=== PATIENT | male | born 1970 | race Two or more races ===

== ENCOUNTER 2024-10-22 03:24 | Inpatient (IN) | payer MEDICAID, OTHER ==
[2024-10-22] VITALS (7 sets, daily range): BP systolic 113–122; BP diastolic 71–84; PULSE 65–76; RESP 16–18; TEMP 97.6–99; O2SAT 95–96
[~2024-10-22] VITALS: Ht 182.9 cm; Wt 86.2 kg
[2024-10-22] MEDS: MORPHINE SULFATE 4 MG/ML SYR/VIAL IV ONE (03:45)
[2024-10-22] MEDS: ONDANSETRON HCL 4 MG/2 ML VIAL IV ONE (03:45)
[2024-10-22 03:52] LABS: Urine Bacteria None Seen /hpf (None Seen)
--- NOTE | 2024-10-22 03:55 | ED.PDOC ---
History of Present Illness HPI Comments 54 y/o M presents with c/o right testicular pain and swelling. Patient endorses on sudden and unprovoked onset of symptoms, that began 8 hours prior to arrival. He refutes any known recent injuries, sexual activities, or previous incidences of similar symptoms in the past. He denies having any urinary symptoms, fever, chills, or other associated symptoms. Chief Complaint: Testicle Pain Time Seen by MD: 03:40 Reviewed Notes: Nurses Notes, Medications, Allergies Allergies: Coded Allergies: NO KNOWN ALLERGIES (Unverified , 10/22/24) Information Source: Patient Mode of Arrival: Ambulatory Severity: Moderate Timing: Hours Duration: Since onset Prehospital treatment: None Past Medical History PAST MEDICAL HISTORY: Denies Surgical History: Denies all surgeries Social History Smoker: Non-Smoker Alcohol: Denies ETOH Use Drugs: Denies Drug Use Lives In: Home All Other Systems: Reviewed and Negative (Comprehensive systems review obtained and negative except for what is stated in the HPI.) Physical Exam General Appearance: Moderate Distress HEENT: Pharynx Normal Neck: Normal Inspection Respiratory: No Respiratory Distress Cardiovascular: No Edema Breast Exam: Deferred Gastrointestinal: Non Tender Genitalia: Testicle (Right and left testicles are swollen and tender) Pelvic: Deferred Rectal: Deferred Extremities: No pedal edema Neurologic: No Motor Deficits Cerebellar Function: NOT DONE Reflexes: NOT DONE Skin: Normal Color Lymphatic: NOT DONE Was a procedure done? Was a procedure done?: No Differential Dx Considerations may include: testicular torsion, epididymitis, torsion of testicular appendix, HSP, inguinal hernia, among others X-Ray, Labs, Meds, VS Vital Signs Date Time Temp Pulse Resp B/P (MAP) Pulse Ox O2 Delivery O2 Flow Rate FiO2 10/22/24 03:30 98.9 92 16 174/115 (134) 98 98.9 Lab Test 10/22/24 03:45 10/22/24 03:40 Range/Units Urine Color Light-yellow Yellow Urine Clarity Clear Clear Urine pH 6.5 5.0-9.0 Urine Specific [place] 1.025 1.001-1.035 Urine Protein Negative Negative Urine Ketones Negative Negative Urine Blood 1+ H Negative /uL Urine Nitrite Negative Negative Urine Bilirubin Negative Negative Urine Urobilinogen 2 H Negative mg/dL Urine Leukocyte Esterase 3+ Negative /uL Urine RBC 28 0 - 3 /hpf Urine Microscopic WBC 116 H 0-3 /HPF Urine Squamous Epithelial Cells Few <5 /hpf Urine Bacteria None seen None Seen /hpf Urine Yeast (Budding) Occasional None Seen /hpf Urine Glucose Normal Normal mg/dL White Blood Count 15.4 H 4.4-10.8 10^3/uL Red Blood Count 4.63 4.5-5.90 10^6/uL Hemoglobin 14.5 13.5-17.5 g/dL Hematocrit 42.6 41.0-53.0 % Mean Corpuscular Volume 91.8 80.0-100.0 fL Mean Corpuscular Hemoglobin 31.4 28.0-32.0 pg Mean Corpuscular Hemoglobin Concent 34.2 32.0-36.0 g/dL Red Cell Distribution Width 13.1 11.8-14.3 % Platelet Count 299 140-450 10^3/uL Mean Platelet Volume 7.7 6.9-10.8 fL Neutrophils (%) (Auto) 76.2 37.0-80.0 % Lymphocytes (%) (Auto) 15.3 10.0-50.0 % Monocytes (%) (Auto) 6.8 0.0-12.0 % Eosinophils (%) (Auto) 0.6 0.0-7.0 % Basophils (%) (Auto) 1.1 0.0-2.0 % Neutrophils # (Auto) 11.7 H 1.6-8.6 10 ^3/uL Lymphocytes # (Auto) 2.4 0.4-5.4 10 ^3/uL Monocytes # (Auto) 1.0 0-1.3 10 ^3/uL Eosinophils # (Auto) 0.1 0-0.8 10 ^3/uL Basophils # (Auto) 0.2 0-0.2 10 ^3/uL Nucleated Red Blood Cells 0.0 % Sodium Level 139 136-145 mmol/L Potassium Level 4.1 3.5-5.1 mmol/L Chloride Level 105 98-107 mmol/L Carbon Dioxide Level 27 20-31 mmol/L Anion Gap 7 5-15 Blood Urea Nitrogen 14 9-23 mg/dL Creatinine 0.95 0.700-1.30 mg/dL Glomerular Filtration Rate Calc 96 >90 mL/min BUN/Creatinine Ratio 14.7 10.0-20.0 Serum Glucose 108 H 74-106 mg/dL Calcium Level 9.9 8.7-10.4 mg/dL Time of 1ST Reevaluation: 04:10 Reevaluation 1ST: Unchanged Patient Education/Counseling: Diagnosis, Treatment Family Education/Counseling: No Family Present Departure 1 Departure Time of Disposition: 05:21 (Patient presented with abdominal pain that was concerning for possible appendicits, gastritis, cholecystitis, colitis, ga stroenteritis, sbo, or orther possible surgical emergency. Data: 1. I ordered and reviewed the result of at least 3 labs including a CBC, BMP, and Urinalysis. 2. I independently interpreted the following tests: Ultrasound is concerning for epididymitis and an abnormal appearance to the left testicle..Risk:This patient has a high risk of morbidity due to further diagnostic testing or treatment and may suffer from an acute abdominal process disorder. Workup reveals epididymitis but an adenoma left testicle appearance on ultrasound. Given patient's intractable pain we will empirically cover patient with antibiotics and admit patient for expert consultation .) Impression: Primary Impression: Epididymitis, right Additional Impression: Abnormal finding on diagnostic imaging of left testicle Disposition: ADMITTED INPATIENT Admit to: Med Surg Condition: Serious Critical Care Note Critical Care Time?: Yes Critical care comment: Intractable abdominal pain Authorized and Performed by: Jayce Enciso MD Total critical care time: Approximately 35 minutes Due to a high probability of clinically significant, life threatening deterioration, the patient required my highest level of preparedness to intervene emergently and I personally spent this critical care time directly and personally managing the patient. This critical care time included obtaining a history; examining the patient; pulse oximetry; ordering and review of studies; arranging urgent treatment with development of a management plan; evaluation of patient's response to treatment; frequent reassessment; and, discussions with other providers. This critical care time was performed to assess and manage the high probability of imminent, life-threatening deterioration that could result in multi-organ failure. It was exclusive of separately billable procedures and treating other patients and teaching time. Please see my other sections and the rest of the note for further information on patient assessment and treatment. Stability Stability form required: No Heart Score Heart Score: Heart Score Response (Comments) Value History N/A 0 EKG N/A 0 Age N/A 0 Risk Factors N/A 0 Troponin N/A 0 Total 0 I personally scribed for JAYCE ENCISO MD ([email or web address]) on 10/22/24 at 03:55. Electronically submitted by Bry Jimenez ([email or web address]). JAYCE ENCISO MD October 22, 2024 03:55
[2024-10-22 04:15] LABS: Urine Blood 1+ /uL (Negative); Urine Budding Yeast OCCASIONAL /hpf (None Seen); Urine Clarity Clear (Clear); Urine Color Light-Yellow (Yellow); Urine Protein, UAD Negative (Negative); Urine Specific Gravity 1.025 (1.001-1.035); Urine Squamous Epithelial Cell FEW /hpf (<5); Urine Urobilinogen 2 mg/dL (Negative); Urine WBC 116 /HPF (0-3); Urine pH 6.5 (5.0-9.0)
[2024-10-22 04:21] LABS: Basophils # (auto) 0.2 10 ^3/uL (0-0.2); Basophils % (auto) 1.1 % (0.0-2.0); Eosinophils # (auto) 0.1 10 ^3/uL (0-0.8); Eosinophils % (auto) 0.6 % (0.0-7.0); Hematocrit 42.6 % (41.0-53.0); Hemoglobin 14.5 g/dL (13.5-17.5); Lymphocytes # (auto) 2.4 10 ^3/uL (0.4-5.4); Lymphocytes % (auto) 15.3 % (10.0-50.0); Mean Corpuscular Hemoglobin 31.4 pg (28.0-32.0); Mean Corpuscular Hgb Conc. 34.2 g/dL (32.0-36.0); Mean Corpuscular Volume 91.8 fL (80.0-100.0); Monocytes % (auto) 6.8 % (0.0-12.0); Neutrophils # (auto) 11.7 10 ^3/uL (1.6-8.6); Neutrophils % (auto) 76.2 % (37.0-80.0); Platelet Count (auto) 299 10^3/uL (140-450); Red Blood Cells 4.63 10^6/uL (4.5-5.90); Red Cell Distribution Width 13.1 % (11.8-14.3); White Blood Cell 15.4 10^3/uL (4.4-10.8)
[2024-10-22 04:27] LABS: Chloride 105 mmol/L (98-107); Potassium 4.1 mmol/L (3.5-5.1); Sodium 139 mmol/L (136-145)
[2024-10-22 04:28] LABS: Anion Gap 7 (5-15); Calcium 9.9 mg/dL (8.7-10.4); Carbon Dioxide 27 mmol/L (20-31)
[2024-10-22 04:33] LABS: BUN/Creatinine Ratio 14.7 (10.0-20.0); Blood Urea Nitrogen 14 mg/dL (9-23)
[2024-10-22 04:39] LABS: Glucose 108 mg/dL (74-106)
--- NOTE | 2024-10-22 05:02 | DVH ---
ULTRASOUND OF SCROTUM AND CONTENTS. INDICATION: testicular pain COMPARISON: None TECHNIQUE: Multiple real-time grayscale sonographic and color and duplex Doppler images of the scrotu m and its contents were obtained. FINDINGS: The right testicle measures 3.4 x 3.7 x 3.4 cm. The left testicle measures 3.4 x 2.3 x 2.7 cm. Right testicle appears within normal limits. Abnormal atrophic appearance of the left testicle. The right epididymis measures 3.4 cm. The left epididymis is not visualized. Edematous enlarged appea nigel of the right epididymis. Subsequent color and duplex Doppler interrogation of the testes demonstrated symmetric normal vascula r flow to both testicles. Hyperemia to the right epididymis. Small right hydrocele. IMPRESSION: Findings are suspicious for right epididymitis. Abnormal nonspecific atrophic and hypoattenuating appearance to the left testicle ; nonspecific. Small right hydrocele.
[2024-10-22] MEDS ORDERED: levoFLOXacin 500MG 100 ML IV SCH (06:00)
[2024-10-22] MEDS ORDERED: MORPHINE SULFATE INJ 2 MG/ml SYRG IV PRN (06:00)
[2024-10-22] MEDS: SODIUM CHLORIDE 0.9% 1,000 ML IV ONE ×2 (06:10→11:28)
[2024-10-22] MEDS: cefTRIAXone 1GM/50ML D5W 50 ML IV ONE (06:16)
--- NOTE | 2024-10-22 06:45 | DVHHP2 ---
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 Denies trauma, recent sexual activity, dysuria, fever, chills, or similar prior episodes. No recent illness or systemic symptoms. No urinary complaints. Past Medical History PAST MEDICAL HISTORY: Denies Surgical History: Denies all surgeries Social History Smoker: Non-Smoker Alcohol: Denies ETOH Use Drugs: Denies Drug Use Lives In: Home Review of Systems Constitutional: No: Fever, Chills, Sweats, Weakness, Malaise, Other Eyes: No: Pain, Vision change, Conjunctivae inflammation, Eyelid inflammation, Other, Redness ENT: No: Ear pain, Ear discharge, Nose pain, Nose discharge, Nose congestion, Mouth pain, Mouth swelling, Throat pain, Throat swelling, Other Respiratory: No: Cough, Dry, Shortness of breath, SOB with excertion, Wheezing, Hemoptysis, Pleuritic Pain, Sputum, Wheezing, Other Cardiovascular: No: Chest Pain, Palpitations, Orthopnea, Paroxysmal Noc. Dyspn ea, Edema, Lt Headedness, Other Gastrointestinal: No: Nausea, Vomiting, Abdominal Pain, Diarrhea, Constipation, Melena, Hematochezia, Other Genitourinary: No Dysuria, No Frequency, No Incontinence, No Hematuria, No Retention; Other (testicular pain ) Musculoskeletal: No: other, neck pain, shoulder pain, arm pain, back pain, hand pain, leg pain, foot pain Skin: No: Rash, Lesions, Jaundice, Bruising, Other Neurological: No: Weakness, Numbness, Incoordination, Change in speech, Confusion, Seizures, Other Allergies: Coded Allergies: NO KNOWN ALLERGIES (Unverified , 10/22/24) Medications Current Medications Medications Dose Ordered Sig/[facility] Route Start Time Stop Time Status Last Admin Dose Admin Levofloxacin/ Dextrose 100 ml @ 100 mls/hr DAILY IV 10/22/24 06:00 Ceftriaxone Sodium/Dextrose 50 ml @ 50 mls/hr DAILY IV 10/23/24 10:00 Ketorolac Tromethamine 30 mg Q6HPRN PRN IV 10/22/24 06:00 10/27/24 05:59 Morphine Sulfate 1 mg Q4HP PRN IV 10/22/24 06:00 Sodium Chloride 1,000 ml @ 100 mls/hr Q10H IV 10/22/24 06:00 Exam Vital Signs Vital Signs Date Time Temp Pulse Resp B/P (MAP) Pulse Ox O2 Delivery O2 Flow Rate FiO2 10/22/24 05:48 98.4 80 16 146/98 (114) 95 98.4 10/22/24 05:48 Room Air Exam General: Moderate distress due to pain : Right testicle is significantly swollen, erythematous, and exquisitely tender. Left testicle also slightly tender, less swollen. No visible lesions. Rest of the exam: WNL General Appearance: Alert, Oriented X3 HEENT: Atraumatic, PERRLA Respiratory: Clear to auscultation Cardiovascular: Regular rate, Normal S1 Abdominal: Normal bowel sounds, Soft Extremities: No clubbing Skin: No rashes Neuro: Normal gait Psych/Mental Status: Mental status NL Labs/Xrays Labs Test 10/22/24 03:45 10/22/24 03:40 Range/Units Urine Color Light-yellow Yellow Urine Clarity Clear Clear Urine pH 6.5 5.0-9.0 Urine Specific [place] 1.025 1.001-1.035 Urine Protein Negative Negative Urine Ketones Negative Negative Urine Blood 1+ H Negative /uL Urine Nitrite Negative Negative Urine Bilirubin Negative Negative Urine Urobilinogen 2 H Negative mg/dL Urine Leukocyte Esterase 3+ Negative /uL Urine RBC 28 0 - 3 /hpf Urine Microscopic WBC 116 H 0-3 /HPF Urine Squamous Epithelial Cells Few <5 /hpf Urine Bacteria None seen None Seen /hpf Urine Yeast (Budding) Occasional None Seen /hpf Urine Glucose Normal Normal mg/dL White Blood Count 15.4 H 4.4-10.8 10^3/uL Red Blood Count 4.63 4.5-5.90 10^6/uL Hemoglobin 14.5 13.5-17.5 g/dL Hematocrit 42.6 41.0-53.0 % Mean Corpuscular Volume 91.8 80.0-100.0 fL Mean Corpuscular Hemoglobin 31.4 28.0-32.0 pg Mean Corpuscular Hemoglobin Concent 34.2 32.0-36.0 g/dL Red Cell Distribution Width 13.1 11.8-14.3 % Platelet Count 299 140-450 10^3/uL Mean Platelet Volume 7.7 6.9-10.8 fL Neutrophils (%) (Auto) 76.2 37.0-80.0 % Lymphocytes (%) (Auto) 15.3 10.0-50.0 % Monocytes (%) (Auto) 6.8 0.0-12.0 % Eosinophils (%) (Auto) 0.6 0.0-7.0 % Basophils (%) (Auto) 1.1 0.0-2.0 % Neutrophils # (Auto) 11.7 H 1.6-8.6 10 ^3/uL Lymphocytes # (Auto) 2.4 0.4-5.4 10 ^3/uL Monocytes # (Auto) 1.0 0-1.3 10 ^3/uL Eosinophils # (Auto) 0.1 0-0.8 10 ^3/uL Basophils # (Auto) 0.2 0-0.2 10 ^3/uL Nucleated Red Blood Cells 0.0 % Sodium Level 139 136-145 mmol/L Potassium Level 4.1 3.5-5.1 mmol/L Chloride Level 105 98-107 mmol/L Carbon Dioxide Level 27 20-31 mmol/L Anion Gap 7 5-15 Blood Urea Nitrogen 14 9-23 mg/dL Creatinine 0.95 0.700-1.30 mg/dL Glomerular Filtration Rate Calc 96 >90 mL/min BUN/Creatinine Ratio 14.7 10.0-20.0 Serum Glucose 108 H 74-106 mg/dL Calcium Level 9.9 8.7-10.4 mg/dL Assessment/Plan Assessment/Plan #Right Epididymitis #Severe Testicular Pain #Small Hydrocele #Abnormal Left Testicle (atrophic, hypoechoic) #Complicated UTI #Sepsis? Admit. Medsurg. Diet: Regular as tolerated. Ceftriaxone IV daily, Levofloxacin IV (covering for possible STI-related or urinary pathogens). Pain control with morphine PRN severe pain, ketorolac PRN moderate pain. Continue IVF 1L NS and then 100 cc/hr. 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 Urology consult placed. Monitor vitals and pain response. Pending: Blood and urine cultures. Case discussed with Dr Jack Full code Plan discussed with: Patient, Other My Orders Orders - JOVI MAS RESIDENT Procedure Category Date Status Time Admit ADMIT 10/22/24 Transmitted 05:57 Code Status CODE 5/28/25 Transmitted 05:57 Vital Signs RODY 10/22/24 In Process 05:57 Review Orders With RODY 10/22/24 In Process Adm. 05:57 Notify Md Of Changes RODY 10/22/24 In Process From Base 05:57 Advance Directive RODY 10/22/24 In Process 05:57 Patient Condition ORDERS 10/22/24 Transmitted 05:57 Allergies RODY 10/22/24 In Process 05:57 Levofloxacin 500mg PHA 10/22/24 In Process (Levaquin 500mg/ 100m 06:00 Ketorolac Injection PHA 10/22/24 In Process (Toradol Injection) 06:00 Morphine Sulfate PHA 10/22/24 In Process Injection 06:00 Sodium Chloride 0.9% PHA 10/22/24 In Process 06:00 Ceftriaxone 2gm/50ml PHA 10/23/24 In Process D5w (Rocephin 2gm/5 10:00 Blood Culture LINDA 10/22/24 Logged 06:15 Urine Bacterial LINDA 10/22/24 In Process Culture 06:15 Chest Xray 1 View XY 10/22/24 Taken 06:15 B-Type Natriuretic LAB 10/22/24 In Process Peptide 06:15 Sodium Chloride 0.9% PHA 10/22/24 In Process 06:15 Lactic Acid W/ Reflex LAB 10/22/24 Logged Order 06:16 Hepatic Panel LAB 10/22/24 In Process 06:16 Regular Diet DIET 10/22/24 Transmitted Breakfast Date of Service: October 22, 2024 Billing Provider: LAN JACK MD Common Visit Codes: 14849-AZFNCVG INP/OBS CARE (HIGH) Secondary Visit Codes: 49086-[id number] CARE PLAN 30 MINUTES JOVI MAS RESIDENT October 22, 2024 06:45
--- NOTE | 2024-10-22 07:05 | DVH ---
EXAM: XR Chest, 1 View CLINICAL INDICATION: DYSPNEA TECHNIQUE: Frontal view of the chest. COMPARISON: None FINDINGS: LUNGS AND PLEURAL SPACES: Unremarkable. No consolidation. No pneumothorax. HEART: Unremarkable. No cardiomegaly. MEDIASTINUM: Unremarkable. Normal mediastinal contour. BONES/JOINTS: Unremarkable. No acute fracture. OTHER FINDINGS: . IMPRESSION: No acute cardiopulmonary process.
[2024-10-22 07:47] LABS: Alanine Aminotransferase 23 U/L (7-40); Albumin 4.6 g/dL (3.2-4.8); Alkaline Phosphatase 106 U/L (46-116); Aspartate Aminotransferase 20 U/L (13-40)
[2024-10-22 07:48] LABS: Bilirubin, Direct < 0.1 mg/dL (<0.3); Bilirubin, Total 0.3 mg/dL (0.2-1.0)
--- NOTE | 2024-10-22 09:42 | DVHINCON2 ---
Date of service: October 22, 2024 Referring Physician ER/Hospitalist Reason for Consultation "Abnormal tesicular US" History of Present Illness Right testicular pain. US shows epididymitis. 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 No recent illness or systemic symptoms. No urinary complaints. Allergies: Coded Allergies: NO KNOWN ALLERGIES (Unverified , 10/22/24) Current Medications Current Medications Medications (Trade) Dose Ordered Sig/[facility] Route PRN Reason Start Time Stop Time Status Last Admin Levofloxacin/ Dextrose 100 ml @ 100 mls/hr DAILY IV 10/22/24 06:00 10/22/24 07:50 DC Ceftriaxone Sodium/Dextrose 50 ml @ 50 mls/hr DAILY IV 10/23/24 10:00 Ketorolac Tromethamine (Toradol Injection) 30 mg Q6HPRN PRN IV MODERATE PAIN (4-6 PAIN SCALE) 10/22/24 06:00 10/27/24 05:59 Morphine Sulfate 1 mg Q4HP PRN IV SEVERE PAIN (7-10 PAIN SCALE) 10/22/24 06:00 Sodium Chloride 1,000 ml @ 100 mls/hr Q10H IV 10/22/24 06:00 Doxycycline Monohydrate (Vibramycin Tablet) 100 mg Q12HR PO 10/22/24 10:00 Vital Signs Vital Signs Date Time Temp Pulse Resp B/P (MAP) Pulse Ox O2 Delivery O2 Flow Rate FiO2 10/22/24 09:00 98.1 72 16 117/79 (92) 96 98.1 10/22/24 05:48 Room Air Physical Exam PATIENT: ROSALINO ALMAGUER ACCT: [id number] UNIT: [id number] : 1970 LOC: ER ROOM / BED: / AGE / SEX: 54 / M ADM STATUS: REG ER SERVICE [id number] ORDERING PHYSICIAN: JAYCE CASTELLANO MD PROCEDURE(s): TESUS - TESTICULAR ULTRASOUND REASON: testicular pain ORDER NUMBER(s): [id number], ACCESSION NUMBER(s): [id number] ULTRASOUND OF SCROTUM AND CONTENTS. INDICATION: testicular pain COMPARISON: None TECHNIQUE: Multiple real-time grayscale sonographic and color and duplex Doppler images of the scrotum and its contents were obtained. FINDINGS: The right testicle measures 3.4 x 3.7 x 3.4 cm. The left testicle measures 3.4 x 2.3 x 2.7 cm. Right testicle appears within normal limits. Abnormal atrophic appearance of the left testicle. The right epididymis measures 3.4 cm. The left epididymis is not visualized. Edematous enlarged appearance of the right epididymis. Subsequent color and duplex Doppler interrogation of the testes demonstrated symmetric normal vascular flow to both testicles. Hyperemia to the right epididymis. Small right hydrocele. IMPRESSION: Findings are suspicious for right epididymitis. Abnormal nonspecific atrophic and hypoattenuating appearance to the left te sticle ; nonspecific. Small right hydrocele. ATED BY: GABRIEL FISHER MD DICTATED DATE/TIME: 10/22/24 0500 SIGNED BY: GABRIEL FISHER MD SIGNED DATE/TIME: 10/22/24 0500 CC: Labs/Diagnostic Data Labs Test 10/22/24 07:12 10/22/24 07:00 10/22/24 03:45 10/22/24 03:40 Range/Units HIV (1&2) Antibody Negative Negative Lactic Acid Level 0.8 0.4-2.0 mmol/L Urine Color Light-yellow Yellow Urine Clarity Clear Clear Urine pH 6.5 5.0-9.0 Urine Specific [place] 1.025 1.001-1.035 Urine Protein Negative Negative Urine Ketones Negative Negative Urine Blood 1+ H Negative /uL Urine Nitrite Negative Negative Urine Bilirubin Negative Negative Urine Urobilinogen 2 H Negative mg/dL Urine Leukocyte Esterase 3+ Negative /uL Urine RBC 28 0 - 3 /hpf Urine Microscopic WBC 116 H 0-3 /HPF Urine Squamous Epithelial Cells Few <5 /hpf Urine Bacteria None seen None Seen /hpf Urine Yeast (Budding) Occasional None Seen /hpf Urine Glucose Normal Normal mg/dL White Blood Count 15.4 H 4.4-10.8 10^3/uL Red Blood Count 4.63 4.5-5.90 10^6/uL Hemoglobin 14.5 13.5-17.5 g/dL Hematocrit 42.6 41.0-53.0 % Mean Corpuscular Volume 91.8 80.0-100.0 fL Mean Corpuscular Hemoglobin 31.4 28.0-32.0 pg Mean Corpuscular Hemoglobin Concent 34.2 32.0-36.0 g/dL Red Cell Distribution Width 13.1 11.8-14.3 % Platelet Count 299 140-450 10^3/uL Mean Platelet Volume 7.7 6.9-10.8 fL Neutrophils (%) (Auto) 76.2 37.0-80.0 % Lymphocytes (%) (Auto) 15.3 10.0-50.0 % Monocytes (%) (Auto) 6.8 0.0-12.0 % Eosinophils (%) (Auto) 0.6 0.0-7.0 % Basophils (%) (Auto) 1.1 0.0-2.0 % Neutrophils # (Auto) 11.7 H 1.6-8.6 10 ^3/uL Lymphocytes # (Auto) 2.4 0.4-5.4 10 ^3/uL Monocytes # (Auto) 1.0 0-1.3 10 ^3/uL Eosinophils # (Auto) 0.1 0-0.8 10 ^3/uL Basophils # (Auto) 0.2 0-0.2 10 ^3/uL Nucleated Red Blood Cells 0.0 % Sodium Level 139 136-145 mmol/L Potassium Level 4.1 3.5-5.1 mmol/L Chloride Level 105 98-107 mmol/L Carbon Dioxide Level 27 20-31 mmol/L Anion Gap 7 5-15 Blood Urea Nitrogen 14 9-23 mg/dL Creatinine 0.95 0.700-1.30 mg/dL Glomerular Filtration Rate Calc 96 >90 mL/min BUN/Creatinine Ratio 14.7 10.0-20.0 Serum Glucose 108 H 74-106 mg/dL Calcium Level 9.9 8.7-10.4 mg/dL Total Bilirubin 0.3 0.2-1.0 mg/dL Direct Bilirubin < 0.1 <0.3 mg/dL Aspartate Amino Transferase (AST) 20 13-40 U/L Alanine Aminotransferase (ALT) 23 7-40 U/L Alkaline Phosphatase 106 46-116 U/L B-Type Natriuretic Peptide 6.04 0-100 pg/mL Total Protein 8.0 5.7-8.2 g/dL Albumin 4.6 3.2-4.8 g/dL Assessment Right epididymitis Plan/Recommendation Scrotal support x 2 weeks Cipro 500 mg po bid x 2 weeks f/u as outpatient in clinic Plan discussed with: BRII Conway MD October 22, 2024 09:42
[2024-10-22] MEDS: AZITHROMYCIN 250 MG TAB PO ONE (11:28)
[2024-10-22] MEDS: DOXYCYCLINE 100 MG TAB/CAP PO SCH (11:28)
[2024-10-22] MEDS: SODIUM CHLORIDE 0.9% 1,000 ML IV SCH (11:50)
--- NOTE | 2024-10-22 16:03 | DVHPNRES ---
Progress Note Date Seen: October 22, 2024 Resident Creating Document: JERRI CARMONAARIANA RESIDENT Medical Necessity Reason Pt with a Central, PICC or Fol: No Subjective Review of Systems Patient is a 54-year-old male with no significant past medical history presented to the ED with a chief complaint of testicular pain which started about 8-10 hours prior to presentation. Patient reported that he had sudden onset of pain in the right testicular associated with swelling and tenderness following which he came to the hospital for further evaluation. Patient denied fever, chills, nausea or vomiting. Patient denied urinary symptoms of increased frequency, dysuria, nocturia. No discharge seen from the urethra. Patient is in a monogamous relationship with his Past Medical History: None PAST MEDICAL HISTORY: Denies Surgical History: Denies all surgeries Social history: Patient smokes a pack of cigarettes daily for the last 20 years, denies alcohol and any other drug use No home medications Review of systems Patient seen and examined at the bedside Reported pain in the right side of the chest with the associated swelling and tenderness No other acute complaints Objective vital signs Vital Sign Date Time Temp Pulse Resp B/P (MAP) Pulse Ox O2 Delivery O2 Flow Rate FiO2 10/22/24 13:00 98.0 74 16 119/71 (87) 96 98.0 10/22/24 05:48 Room Air medications Current Medications Medications Dose Ordered Sig/[facility] Route Start Time Stop Time Status Last Admin Dose Admin Ceftriaxone Sodium/Dextrose 50 ml @ 50 mls/hr DAILY IV 10/23/24 10:00 Ketorolac Tromethamine 30 mg Q6HPRN PRN IV 10/22/24 06:00 10/27/24 05:59 Morphine Sulfate 1 mg Q4HP PRN IV 10/22/24 06:00 Sodium Chloride 1,000 ml @ 100 mls/hr Q10H IV 10/22/24 06:00 10/22/24 11:50 100 MLS/HR Doxycycline Monohydrate 100 mg Q12HR PO 10/22/24 10:00 10/22/24 11:28 100 MG Examination Gen - no pallor, no icterus, no cyanosis, no clubbing, no LAD, no edema . Skin - Patients skin is warm and dry. HEENT - normocephalic, atraumatic, moist mucous membranes. Neck - full ROM, no LAD, no JVD Pulmonary - B/L equal breath sounds, no crackles, no wheezing, no stridor. cardiovascular - regular S1,S2 heard, no added sounds, no murmurs heard. peripheral pulses normal radial 2+, pedal 2+. capillary refill normal <2 secs. GI - soft, nontender abdomen. no hepatospleenomegaly. Bowel sounds normoactive - hard swelling and erythema on the right side, right testicle not palpated, normal testicle on the left side Neurological - Patient is A/O X 3 . Bilateral upper extremity strength 5/5, bilateral lower extremity strength 5/5, no facial droop, normal speech, no tremor, no sensory deficiets. laboratory and microbiology Laboratory Tests 10/22/24 03:40 Test 10/22/24 03:40 Range/Units Serum Glucose 108 H 74-106 mg/dL Problem List/Assessment/Plan Problem List/Assessment/Plan Intractable scrotal pain Scrotal swelling Probable acute epididymitis Right hydrocele Complicated UTI SIRS likely due to above - testicular ultrasound showed findings suspicious for right epididymitis, small right hydrocele, normal nonspecific atrophic and hypoattenuating appearance of the left testicle - chlamydia and gonorrhea pending - urinalysis shows UTI - on ceftriaxone and doxycycline - IV fluids - pain management - urology consulted and recommended scrotal support PUD prophylaxis: Famotidine Goals of care discussed with the patient for over 29 minutes. Full code Plan discussed with Dr. Payton Plan discussed with: Patient Date of Service: October 22, 2024 Billing Provider: SANDRA PAYTON MD Common Visit Codes: NOT BILLABLE JUSTIN CARMONA RESIDENT October 22, 2024 16:03 SANDRA PAYTON MD October 22, 2024 17:51
[2024-10-22] MEDS: NICOTINE 21MG/24 HR TOPICAL PATCH TD ONE (16:35)
[2024-10-23 01:00] VITALS: BP 103/66; PULSE 70; RESP 18; TEMP 98; O2SAT 93
[2024-10-23 05:00] VITALS: BP 137/95; PULSE 73; RESP 18; TEMP 98.1; O2SAT 97
[2024-10-23 07:34] LABS: Basophils # (auto) 0 10 ^3/uL (0-0.2); Basophils % (auto) 0.3 % (0.0-2.0); Eosinophils # (auto) 0.2 10 ^3/uL (0-0.8); Eosinophils % (auto) 1.5 % (0.0-7.0); Hematocrit 39.9 % (41.0-53.0); Hemoglobin 13.8 g/dL (13.5-17.5); Lymphocytes # (auto) 2.1 10 ^3/uL (0.4-5.4); Lymphocytes % (auto) 14.6 % (10.0-50.0); Mean Corpuscular Hemoglobin 31.5 pg (28.0-32.0); Mean Corpuscular Hgb Conc. 34.6 g/dL (32.0-36.0); Mean Corpuscular Volume 91.2 fL (80.0-100.0); Monocytes # (auto) 0.7 10 ^3/uL (0-1.3); Monocytes % (auto) 5.3 % (0.0-12.0); Neutrophils # (auto) 11.1 10 ^3/uL (1.6-8.6); Neutrophils % (auto) 78.3 % (37.0-80.0); Platelet Count (auto) 302 10^3/uL (140-450); Red Blood Cells 4.38 10^6/uL (4.5-5.90); Red Cell Distribution Width 13.1 % (11.8-14.3); White Blood Cell 14.2 10^3/uL (4.4-10.8)
[2024-10-23 07:52] LABS: Anion Gap 9 (5-15); Carbon Dioxide 27 mmol/L (20-31); Chloride 104 mmol/L (98-107); Sodium 140 mmol/L (136-145)
[2024-10-23 07:53] LABS: Calcium 9.4 mg/dL (8.7-10.4)
[2024-10-23 07:57] LABS: Glucose 90 mg/dL (74-106)
[2024-10-23 07:58] LABS: BUN/Creatinine Ratio 15.4 (10.0-20.0); Blood Urea Nitrogen 12 mg/dL (9-23)
[2024-10-23 08:30] VITALS: O2SAT 95
[2024-10-23] MEDS ORDERED: MORPHINE SULFATE 4 MG/ML SYR/VIAL IV PRN (08:45)
[2024-10-23] MEDS: NICOTINE 21MG/24 HR TOPICAL PATCH TD SCH (08:46)
[2024-10-23] MEDS: cefTRIAXone 2GM/50ML D5W 50 ML IV SCH (08:47)
[2024-10-23] MEDS: KETOROLAC TROMETH 30 MG/ML 1ML VIAL IV PRN (08:47)
[2024-10-23 10:00] VITALS: BP 124/83; PULSE 75; RESP 18; TEMP 97.8; O2SAT 97
[2024-10-23] MEDS ORDERED: IBUP-1454 PO (12:27)
[2024-10-23] MEDS ORDERED: LEVO500T91 PO (12:27)
[2024-10-23 13:00] VITALS: BP 130/91; PULSE 78; RESP 18; TEMP 98.8; O2SAT 93
--- NOTE | 2024-10-23 19:45 | DVHDSRES ---
Discharge Summary Date of Admission Resident Creating Document: JUSTIN CARMONA RESIDENT October 22, 2024 at 05:57 Date of Discharge: October 23, 2024 Admitting Diagnosis #Right Epididymitis #Severe Testicular Pain #Small Hydrocele #Abnormal Left Testicle (atrophic, hypoechoic) #Complicated UTI #Sepsis? Wounds: none Labs/Diagnostic Data: Laboratory Results Test 10/23/24 06:19 10/22/24 07:12 10/22/24 07:00 10/22/24 03:45 White Blood Count 14.2 10^3/uL (4.4-10.8) Red Blood Count 4.38 10^6/uL (4.5-5.90) Hemoglobin 13.8 g/dL (13.5-17.5) Hematocrit 39.9 % (41.0-53.0) Mean Corpuscular Volume 91.2 fL (80.0-100.0) Mean Corpuscular Hemoglobin 31.5 pg (28.0-32.0) Mean Corpuscular Hemoglobin Concent 34.6 g/dL (32.0-36.0) Red Cell Distribution Width 13.1 % (11.8-14.3) Platelet Count 302 10^3/uL (140-450) Mean Platelet Volume 8.1 fL (6.9-10.8) Neutrophils (%) (Auto) 78.3 % (37.0-80.0) Lymphocytes (%) (Auto) 14.6 % (10.0-50.0) Monocytes (%) (Auto) 5.3 % (0.0-12.0) Eosinophils (%) (Auto) 1.5 % (0.0-7.0) Basophils (%) (Auto) 0.3 % (0.0-2.0) Neutrophils # (Auto) 11.1 10 ^3/uL (1.6-8.6) Lymphocytes # (Auto) 2.1 10 ^3/uL (0.4-5.4) Monocytes # (Auto) 0.7 10 ^3/uL (0-1.3) Eosinophils # (Auto) 0.2 10 ^3/uL (0-0.8) Basophils # (Auto) 0 10 ^3/uL (0-0.2) Nucleated Red Blood Cells 0.0 % Sodium Level 140 mmol/L (136-145) Potassium Level 4.0 mmol/L (3.5-5.1) Chloride Level 104 mmol/L (98-107) Carbon Dioxide Level 27 mmol/L (20-31) Anion Gap 9 (5-15) Blood Urea Nitrogen 12 mg/dL (9-23) Creatinine 0.78 mg/dL (0.700-1.30) Glomerular Filtration Rate Calc 107 mL/min (>90) BUN/Creatinine Ratio 15.4 (10.0-20.0) Serum Glucose 90 mg/dL (74-106) Calcium Level 9.4 mg/dL (8.7-10.4) HIV (1&2) Antibody Negative (Negative) Lactic Acid Level 0.8 mmol/L (0.4-2.0) Urine Color Light-yellow (Yellow) Urine Clarity Clear (Clear) Urine pH 6.5 (5.0-9.0) Urine Specific [place] 1.025 (1.001-1.035) Urine Protein Negative (Negative) Urine Ketones Negative (Negative) Urine Blood 1+ /uL (Negative) Urine Nitrite Negative (Negative) Urine Bilirubin Negative (Negative) Urine Urobilinogen 2 mg/dL (Negative) Urine Leukocyte Esterase 3+ /uL (Negative) Urine RBC 28 /hpf (0 - 3) Urine Microscopic WBC 116 /HPF (0-3) Urine Squamous Epithelial Cells Few /hpf (<5) Urine Bacteria None seen /hpf (None Seen) Urine Yeast (Budding) Occasional /hpf (None Urine Glucose Normal mg/dL (Normal) Test 10/22/24 03:40 Total Bilirubin 0.3 mg/dL (0.2-1.0) Direct Bilirubin < 0.1 mg/dL (<0.3) Aspartate Amino Transferase (AST) 20 U/L (13-40) Alanine Aminotransferase (ALT) 23 U/L (7-40) Alkaline Phosphatase 106 U/L (46-116) B-Type Natriuretic Peptide 6.04 pg/mL (0-100) Total Protein 8.0 g/dL (5.7-8.2) Albumin 4.6 g/dL (3.2-4.8) Other Laboratory Tests 10/23/24 06:19 Brief Hx & Hospital Course: HPI Patient is a 54-year-old male with no significant past medical history presented to the ED with a chief complaint of testicular pain which started about 8-10 hours prior to presentation. Patient reported that he had sudden onset of pain in the right testicular associated with swelling and tenderness following which he came to the hospital for further evaluation. Patient denied fever, chills, nausea or vomiting. Patient denied urinary symptoms of increased frequency, dysuria, nocturia. No discharge seen from the urethra. Patient is in a monogamous relationship with his Past Medical History: None PAST MEDICAL HISTORY: Denies Surgical History: Denies all surgeries Social history: Patient smokes a pack of cigarettes daily for the last 20 years, denies alcohol and any other drug use No home medications Brief hospital course Testicular ultrasound was done which showed evidence of right epididymitis and small right hydrocele following which urology were consulted. patient was started on IV ceftriaxone and oral doxycycline. Patient reported to be monogamous relationship with his . Urology saw the patient and recommended discharging the patient on oral antibiotics with scrotal support. White blood cell count decreased patient felt better and the swelling in the scrotum decreased following which the patient was discharged in stable condition to home with oral levofloxacin 500 mg q.d. for 10 days and advised to wear scrotal support. Follow up in the discharge clinic in 2 weeks and with the urologist if he continues to have pain and swelling in the scrotum. Consults/Reason for consult urology consultation for scrotal swelling and right hydrocoele Operations or Procedures none Condition at Discharge: Good Final Diagnosis/Problems List Intractable scrotal pain Scrotal swelling Probable acute epididymitis Right hydrocele Complicated UTI SIRS likely due to above Discharge Disposition: Home Discharge Instruct/Medications Diet: Regular Activity: See Comment Activity comment: Avoid heavy work and wear a scrotal support Follow Up/Referral: Follow up in the discharge clinic within 1 week Medications: Levofloxacin 500mg daily for 10 days Discharge Statement: "Patient was advised to return to the ER or call 911 if any headaches, dizziness, shortness of breath, chest pain, abdominal pain, bleeding, fevers, or worsening of medical condition. Patient was counseled about treatment plan, medications, possible side effects, patientverbalized understanding. All questions were answered to the best of my ability. This discharge took greater then 30 minutes in planning, reviewing documentation, counseling the patient, and discussing with other team members." ASSESSMENT ASSESSMENT Assessment Intractable scrotal pain Scrotal swelling Probable acute epididymitis Right hydrocele Complicated UTI SIRS likely due to above Date of Service: October 23, 2024 Billing Provider: SANDRA GAYLE MD Common Visit Codes: 72479-SFX/OBS DISCH DAY >30min JUSTIN CARMONA RESIDENT October 23, 2024 19:45 SANDRA GAYLE MD October 23, 2024 23:14
[2024-10-24 06:06] LABS: Chlamydia Trachomatis, NAA Negative (Negative); Neisseria gonorrhoeae, NAA Negative (Negative)
== END 2024-10-23 15:56 | disposition home or self-care (01) | DRG 501 ==
LOC: ER 03:28 → OVERFLOW 05:57 → WEST WING 18:35
PROVIDERS: ADMIT Internal Medicine; ATTEND Internal Medicine
DX: N45.1 Epididymitis (principal); R65.10 Systemic inflammatory response syndrome (SIRS) of non-infectious origin without acute organ dysfunction; N39.0 Urinary tract infection, site not specified; N43.3 Hydrocele, unspecified; N50.89 Other specified disorders of the male genital organs; Z79.899 Other long term (current) drug therapy
CPT/HCPCS: 36415; 71045; 76870; 80048; 80076; 81001; 83605; 83880; 85025; 86703; 87040; 87086; 96374; 96375; 99291; G0378; J1885; J2405